=== PATIENT | male | born 1935 | race Caucasian/White ===

== ENCOUNTER 2019-06-08 11:07 | Inpatient (IN) | payer OTHER ==
[~2019-06-08] VITALS: Ht 175.3 cm; Wt 66.0 kg
[2019-06-08 11:09] VITALS: BP 139/69
[2019-06-08 11:45] LABS: HEMATOCRIT 37.2 % (42.0-52.0); HEMOGLOBIN 12.4 gm/dL (14.0-18.0); MCH 30.8 pg (26.0-34.0); MCHC 33.2 g/dL (28.0-37.0); MCV 92.9 fL (80.0-100.0); PLATELET COUNT 205 thou/uL (150-400); RBC 4.01 mil/uL (4.50-6.00); RDW 14.9 % (10.5-14.5); WBC 5.5 thou/uL (4.0-11.0)
[2019-06-08 11:57] LABS: CALCIUM 8.9 mg/dL (8.5-10.1); CREATININE 1.2 mg/dL (0.7-1.3); POTASSIUM 4.2 mmol/L (3.5-5.1)
[2019-06-08 12:03] LABS: ALBUMIN 2.6 g/dL (3.4-5.0); TOTAL BILIRUBIN 0.3 mg/dL (<0.1-1.0); TOTAL PROTEIN 5.9 g/dL (6.4-8.2)
[2019-06-08 12:15] LABS: ABSOLUTE NEUTROPHILS 3.6 thou/uL (1.4-8.2); PLATELET ESTIMATE NORMAL
[2019-06-08 12:39] LABS: URINE BILIRUBIN NEGATIVE (Negative); URINE BLOOD NEGATIVE (Negative); URINE CLARITY CLEAR; URINE COLOR YELLOW; URINE GLUCOSE-RANDOM* NEGATIVE (Negative); URINE KETONES NEGATIVE (Negative); URINE LEUKOCYTES-REFLEX NEGATIVE (Negative); URINE NITRITE-REFLEX NEGATIVE (Negative); URINE PROTEIN (DIPSTICK) NEGATIVE (Negative); URINE SPECIFIC GRAVITY 1.015 (1.005-1.035)
[2019-06-08 12:50] LABS: AMP/METHAMP Negative (Negative); BARBITURATES Negative (Negative); BENZODIAZEPINES Negative (Negative); COCAINE Negative (Negative); METHADONE Negative (Negative); OPIATES Negative (Negative); PCP Negative (Negative)
--- NOTE | 2019-06-08 13:08 | NUR ---
Dr. Larsen and I were asked to assess pt to see if he meets criteria for SBH. Jian was restless is his bed in the ER, the side rails are up x2 and he was acting as if he ws trying to get OOB. The RADIOTELEGRAPH OPERATOR, myself and Dr. Larsen changed the brief on Jian. He began to cuss at us and tried to fight us. Once he was cleaned he calmed down. 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 Dr. Dawkins will be the admitting physician.
[2019-06-08 13:40] VITALS: BP 139/69
[2019-06-08] MEDS ORDERED: DIVALPROEX SOD250 M3 PO (15:25)
[2019-06-08] MEDS ORDERED: ROSUVASTATIN CA20 MG PO (15:25)
[2019-06-08] MEDS ORDERED: TAMSULOSIN HCL0.4 MG PO (15:25)
[2019-06-08] MEDS ORDERED: MINOCYCLINE HC100 M2 PO (15:25)
[2019-06-08] MEDS ORDERED: XARELTO20 MG PO (15:25)
[2019-06-08] MEDS ORDERED: ARICEPT10 M1 PO (15:25)
[2019-06-08] MEDS ORDERED: MELATONIN3 M1 PO (15:26)
[2019-06-08] MEDS ORDERED: PREDNICARBATE (15:28)
[2019-06-08] MEDS ORDERED: TYLENOL EXTRA500 MG PO (15:30)
--- NOTE | 2019-06-08 17:02 | NUR ---
ROSE spoke with pt's daughter Crissy who gave SW some hx on pt. She said he resides at [facility]; he originally moved with his to [place], but was transferred a little over a year ago to memory care. Pt can no longer go outside and that upsets him. Pt also becomes triggered when trying to communicate. He also does not like loud noises. 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 Since then his relationship with his siblings changed and declined. Crissy originally wanted to keep pt in [place] and hire help, but this idea overwhelmed pt's . Pt eats with his hands and also needs assistance with bathing, dressing, and grooming. He also can walk but his balance is unsteady. Crissy sent ROSE a DPOA doc via email and ROSE reviewed. It says that Crissy is fidiciary DPOA. ROSE will review document with her team to establish the best plan of action in establishing who is DPOA of pt. ROSE team will continue to follow pt during his stay on this unit.
--- NOTE | 2019-06-08 18:17 | NUR ---
AAOX1 NAME ONLY VERY CONFUSED AND FORGETFUL. DENIES PAIN. AMBULATES WITH SLOW STEADY GAIT. SPEECH CLEAR BUT WORD SALAD. ATE DINNER IN DINING ROOM - EATS WITH HANDS ATE 80% OF DINNER. PACES IN HALLS AND TRIES TO ENTER ALL DOORS AND GOES INTO OTHERS ROOMS.
[2019-06-08 19:31] VITALS: BP 112/64
--- NOTE | 2019-06-08 23:59 | NUR ---
Care assumed of patient at 1915: Patient wandering about the halls, dayroom and other patient rooms this evening. Required frequent re-direction to dayroom or his room. Patient alert and oriented to person only. Patient having flight of ideas, nonsensical speech. Patient denies pain or discomfort. Unknown if patient completely understands questions asked. Would respond to questions with Yes or No. No s/s of pain or discomfort observed. Took HS medication whole but attempted to chew medications. Needed several prompts to take a drink of water to swallow medications. Patient resistive, but did take a drink. Patient has darkened, dry skin to bilateral upper extremities. No aggression or agitation shown. No s/s of AH/VH, paranoia or delusions. Patient exit seeking at times. Patient ate 100% HS snack but did need assist. Patient confused and forgetful, needing several prompts and assistance. Patient assisted to bed rather late in the evening but was able to fall to sleep without difficulty and has been resting quietly since.
[2019-06-09 08:00] VITALS: BP 119/79
--- NOTE | 2019-06-09 14:43 | NUR ---
ROSE reviewed pt's DPOA in tx team and it was determined that pt's 3 sons and have healthcare DPOA and his daughter Crissy has fiduciary. ROSE reached out to Crissy and Gabrielle via email. Gabrielle told ROSE and nursing staff that [facility]; [facility] is currently not allowing anyone into the facility. ROSE again attemted to contact Anita with [facility] and was told she was training staff. SW team will continue to follow pt during his stay on this unit.
--- NOTE | 2019-06-09 16:28 | NUR ---
Sitting in WC or recliner most of day with lap sanford in place to close in front. Slept most of day with some rambling speech when awake. Orientated to self only. No speech or actions suggestive of SI/HI. Breath sounds clear t/o. Reg HR auscultated. Color pink with brisk capillary refill and palpable peripheral pulses. Feet cool to touch with +2 edema. Incontinent of large amt yellow urine per brief. Active bowel sounds over soft, flat abdomen. Small firm brown stool. Bruising and edema over R wrist and hand. Skin tear to R wrist, cleaned with NS and petroleum drsg applied after photographs, placed in chart. Dr. Dawkins placed wound consult. Consulting with Dr. Rich r/t hand swelling.
--- NOTE | 2019-06-09 16:30 | NUR ---
SW did check in with patients instead of groups due to COVID-19 guidelines. Pt was getting water when SW did rounds. He did not appear upset. He also did not talk with SW.
[2019-06-09 19:46] VITALS: BP 122/66
[2019-06-09 20:01] VITALS: BP 104/59
--- NOTE | 2019-06-09 23:08 | NUR ---
Care assumed of patient at 1915: Patient sleeping in bed at start of shift. Easily aroused. Calm and cooperative. Slow to respond. Alert and oriented to person only. Confused and forgetful. Incontinent of bladder. Resistive with rajinder care and linen change. Moaning and trying to push staff away, but did not swing arms/legs or try to grab staff. No cursing or yelling observed. Patient took HS medication whole with 50% snack of pudding. Initially started to spit out pudding until he realized it was pudding. Dressing intact to top of right wrist. Denies pain or discomfort. Denies SI/HI/AH/VH. Did answer yes/no questions. Unknown if patient understands the meaning of the questions but he did state "no" when asked most questions. No delusional or paranoia behaviors observed. No pacing or exit seeking observed. Patient able to fall back to sleep after taking HS medication and has been resting quietly since.
[2019-06-10 07:00] VITALS: BP 125/68
--- NOTE | 2019-06-10 10:58 | NUR ---
0715 Lying supine in bed without s/o distress. Orientated to self only. Some confused speech in response to questions. No speech or behavior suggestive of SI/HI. Breath sounds clear t/o, bilaterally equal. Reg HR auscultated. Color pink with brisk capillary refill and palpable peripheral pulses. +2 edema in lower extremities. Incontinent of large amount yellow urine per brief. Active bowel sounds over soft, rounded abdomen. Multiple black, circular areas over lower legs. Skin tear per R hand covered with clean and dry dressing. Slightly reddened area to buttocks, paste applied. Able to stand and transfer with assistance to wheelchair. Lap sanford placed, secured in front. Ate 100% of breakfast. Compliant with meds. 1100 Showered and hair washed. Much more alert, some rambling speech. No s/o distress. Currently sitting in day room with lap sanford in place.
--- NOTE | 2019-06-10 17:33 | NUR ---
SW met with patients individually instead of group due to COVID-19 guidelines. Patient did not engage with SW.
[2019-06-10 20:19] VITALS: BP 140/80
[2019-06-10 22:00] VITALS: BP 140/80
--- NOTE | 2019-06-11 00:25 | NUR ---
Assumed care of patient this pm shift. Patient resting quietly in bed. Patient appears confused but calm. Patient alert to self. Patient denies hi/si. Patient has a wound on/around the wrist which RN dressed. Patient had a bowel movement this pm shift. Patients assessment shows clear breath sounds, active bowel sounds, and s1 s2 heard with auscultation. Patient dressed in hospital gown and pants. We will continue to monitor.
[2019-06-11 09:35] VITALS: BP 135/66
--- NOTE | 2019-06-11 13:54 | HC ---
[facility] [place] [address] CONSULTATION Name: SORAIDA CODY Room #: 522A-A ADM IN M.R.#: [id number] Admission: 06/08/19 Attend Phys: Gaurav Larsen DO Discharge: Date of : 31 Report #: [id number] THIS REPORT FOR: cc: Katy Saxena Kathryn C. DO Jetmore, Allen B. MD ~ CC: Gaurav Saxena DATE OF SERVICE: 06/10/2019 WOUND CARE CONSULTATION NOTE LOCATION: [facility]. REASON FOR CONSULTATION: Skin tear, right arm. HISTORY OF PRESENT ILLNESS: The patient is an 83-year-old gentleman with history of dementia, admitted to the Emergency Room from his nursing care facility where he developed aggressive behavior. He was confused, unable to give any history. With the patient's aggressive behavior, he developed a skin tear of his right arm. It is unclear whether this was present prior to admission. Wound care is consulted due to a skin tear of the right arm. Apparently, this occurred yesterday. The patient is unable to give any history. PAST MEDICAL HISTORY: Atrial fibrillation, pacemaker, urinary incontinence. ALLERGIES: None. MEDICATIONS: See chart. REVIEW OF SYSTEMS: Not obtainable. PHYSICAL EXAMINATION: GENERAL: Shows an elderly male with dementia. HEENT: Mucous membranes are moist. NECK: Supple. LUNGS: Respirations are unlabored. ABDOMEN: Soft. EXTREMITIES: Shows a skin tear of the right dorsal forearm approximately 5 cm from the wrist. There is no avulsion type skin tear measuring approximately 1.5 x 1.5 cm. Appears to be a full split-thickness skin tear. There is a flap of devitalized skin, adherent at proximal edge. Wound appears clean. We will order Silvadene ointment to the wound twice a day. IMPRESSION: [facility] [address] [place] [address] CONSULTATION Name: SORAIDA CODY Room #: 522A-A ADM IN .R.#: [id number] Admission: 06/08/19 Attend Phys: Gaurav Larsen DO Discharge: Date of : 33 Report #: [id number] 1. Dementia. 2. Aggressive behavior. 3. Avulsion type skin tear of the right forearm. PLAN: We will order Silvadene cream apply to the wound twice daily and then cleaned off, covered with gauze dressing. Wound care team will follow. <ELECTRONICALLY SIGNED> By: Edward Singh MD 06/11/19 1354 [id number] 1102 Edward Singh MD /nt
--- NOTE | 2019-06-11 13:54 | HC ---
[facility] [place] [address] CONSULTATION Name: SORAIDA CODY Room #: 522A-A ADM IN M.R.#: [id number] Admission: 06/08/19 Attend Phys: Gaurav Larsen DO Discharge: Date of : 33 Report #: [id number] THIS REPORT FOR: cc: Katy Saxena Kathryn C. DO Jetmore, Allen B. MD ~ CC: Gaurav Saxena DATE OF SERVICE: 06/10/2019 WOUND CARE CONSULTATION NOTE REASON FOR CONSULTATION: Skin tear of right arm. HISTORY OF PRESENT ILLNESS: The patient is an 83-year-old gentleman admitted to [facility] through the Emergency Department by [facility] for history of dementia with aggressive behavior at the [facility] facility. The patient was confused, not able to give any history. Wound care is consulted due to patient's current behavior developing a skin tear. Dictation Ends Here. <ELECTRONICALLY SIGNED> By: Edward Singh MD 06/11/19 1354 1047 1054 Edward Singh MD /nt
--- NOTE | 2019-06-11 16:51 | NUR ---
SW completed 1 on 1 vs. group due to COVID-19 guidelines. Patient was confused and unable to engage with SW.
--- NOTE | 2019-06-11 17:05 | NUR ---
ORIENTED TO FIRST NAME ONLY. CONFUSED ALL DAY - SPEECH INCONPREHENSTBLE. EATS MEALS WITH HANDS - GOOD APPETITE. TOOK MEDS WHOLE IN PUDDING. AMBULATES WITH SLOW STEADY GAIT. INCONTINENT OF URINE - WEARS BRIEF. DENIES PAIN. DR. GARCIA HERE AND DEBRIEDED RIGHT ARM SKIN TEAR AND APPLIED SILVADENE AND OPTIFOAM. CLAPS HANDS AND WANDERS ON UNIT ALL DAY.
[2019-06-11 19:35] VITALS: BP 113/77
--- NOTE | 2019-06-11 22:01 | NUR ---
Assumed care on 06/11/19 @ 1900, in emigdio chair, chair alarm in place. Oriented to self only. Cooperated with assessment, Hrrr even rhythm noted, Lungs cta, abd N x 4 Q. Compliant with meds whole in pudding. In bed at this writing, bed in low position, bed alarm set. Eyes closed, respirations even and unlabored.
[2019-06-12 00:25] VITALS: BP 113/77
[2019-06-12 08:20] VITALS: BP 121/70
[2019-06-12 11:33] VITALS: BP 136/66
--- NOTE | 2019-06-12 11:38 | NUR ---
Assumed care of pt at 0700. Pt still sleeping in bed. 0730, pt awakened and assisted with ADLs, assisted to dayroom by staff and seated at table. Pt tolerated meds well (whole w/pudding) with no difficulty. Pt reported no pain. Pt seated in dayroom for activities. Will continue to monitor.
--- NOTE | 2019-06-12 13:51 | NUR ---
Anita from [facility] contacted for an update on pt. SW provided her an update verbally. ROSE also told her that the fax she keeps sending is not coming through. Anita said she will send the forms via email to ROSE; they are forms signed by his for pt to be treated on the unit. Anita gave SW her fax number of [phone]. received the forms via email. team will continue to follow pt during his stay on this unit.
--- NOTE | 2019-06-12 16:50 | NUR ---
Due to COVID-19 regulations, SW is meeting with pt's 1-[address] of group activities[address] SW attempted to speak to pt. He did not respond to SW and instead wandered the commons area. ROSE then observed him sit in a recliner where he began to visibly shake.
[2019-06-12 19:20] VITALS: BP 140/80
--- NOTE | 2019-06-13 04:27 | NUR ---
Assumed care of pt @ 1900. Pt calm et cooperative this shift. Took medications whole in pudding without difficulty. Ambulates the halls ad geetha with slightly unsteady gait. Pt in dayroom with peers until HS but not socializing. Unable to assess SI/HI due to pt's level of confusion. VSWNL. Health assessment with no abnormalities other than previously noted. Currently resting in bed with eyes closed. Will continue to monitor per protocol.
[2019-06-13 07:46] VITALS: BP 125/86
--- NOTE | 2019-06-13 09:58 | NUR ---
Lying supine in bed. Alert and orientated X4. Conversive and cooperative with assessment. Denies SI/HI. States he has pain in R knee, ranks it a 5-6/10. Very little mobility d/t joint deformities. Breath sounds clear t/o, bilaterally equal. Reg HR auscultated. Color pink with brisk capillary refill and palpable peripheral pulses. +1-2 non pitting edema in lower extremities. Yellow urine per urinal. Active bowel sounds over soft, rounded abdomen. States he had a stool yesterday but it was very firm and it still feels like he needs to have a stool. Lactulose given with AM meds. Multiple joint deformities. Reddened skin on lower extremities but much improved. Dry skin with several plaques on BLE, lotion applied. Linear white-brown dried skin area on L buttock, healing. Placed in recliner with morenita lift by ROOM SERVICE FOOD SERVICE ATTENDANT. Currently sitting out in dining room with peers watching TV. Received phone call from Rosa from Dr. Basurto office stating that pt can be full weight bearing on R leg and no weight bearing on L leg. Dr. Dawkins notified, currently meeting with pt.
--- NOTE | 2019-06-13 10:35 | NUR ---
Lying supine in bed without s/o distress. Alert to name only, confused speech. Does cry out, states it hurts when tape removed, changing clothes but calms once stimulation stopped. No speech/behavior suggestive of SI/HI. Compliant with meds taken whole in pudding. Regular, steady gait later in morning. Breath sounds clear t/o. Reg HR auscultated. Color pink with brisk capillary refill and palpable peripheral pulses. +1 nonpitting edema in lower extremities. Active bowel sounds over soft, rounded abdomen. Took drsg off R wrist, small amt white drainage. Cleaned with NS and gauze, dressed with Xeroform and optiform drsg.
--- NOTE | 2019-06-13 17:13 | NUR ---
Due to COVID-19 guidelines, SW met with pts on a 1-to-1 basis. Pt told SW he was okay when she asked him how he was doing. He then began to try to find a table to sit at for dinner. SW escorted him to a table and helped him arrange his food where he could grab it with his fingers to eat.
[2019-06-13 19:56] VITALS: BP 137/94
--- NOTE | 2019-06-14 00:23 | NUR ---
Assumed care on 06/13/19 @ 1900, in bed, dressing applied to R elbow where a scab had come off. Cooperated with assessment, HRRR, Lungs CTA, ABD N x 4 Q. Dressing on R hand CDI. Compliant with medication whole in pudding. Ambulating through halls, exit seeking. Ativan given @ 1999 for anxiety, wandering and intrusion into peers rooms. At this writing, in bed, eyes closed, respirations even and unlabored. Bed in low position, bed alarm set.
[2019-06-14 00:27] VITALS: BP 137/94
[2019-06-14 05:31] LABS: HEMOGLOBIN 10.8 gm/dL (14.0-18.0); MCH 31.5 pg (26.0-34.0); MCHC 33.7 g/dL (28.0-37.0); MCV 93.5 fL (80.0-100.0); PLATELET COUNT 200 thou/uL (150-400); RBC 3.42 mil/uL (4.50-6.00); RDW 15.1 % (10.5-14.5); WBC 5.7 thou/uL (4.0-11.0)
[2019-06-14 06:09] LABS: ALBUMIN 2.4 g/dL (3.4-5.0); CALCIUM 8.3 mg/dL (8.5-10.1); CREATININE 1.1 mg/dL (0.7-1.3); POTASSIUM 4.1 mmol/L (3.5-5.1); TOTAL BILIRUBIN 0.3 mg/dL (<0.1-1.0); TOTAL PROTEIN 5.5 g/dL (6.4-8.2)
--- NOTE | 2019-06-14 06:28 | NUR ---
slept 6.6 hours
[2019-06-14 09:07] VITALS: BP 153/66
[2019-06-14 11:50] LABS: ABSOLUTE NEUTROPHILS 3.7 thou/uL (1.4-8.2)
[2019-06-14 11:51] LABS: ANISOCYTOSIS 1+
--- NOTE | 2019-06-14 12:13 | NUR ---
0700 Lying supine in bed without s/o distress. Awakens easily, alert and orientated X1. Confused speech in response to questions. Redirectable. No speech or behavior suggestive of SI/HI. Breath sounds clear t/o. Reg HR with murmur auscultated. Color pink with brisk capillary refill and palpable peripheral pulses. +2-3 pitting edema in lower extremities, L>R. Yellow urine per brief, incontinent. Active bowel sounds over soft, flat abdomen. No documented BM since 06/09. Miralax given PO. Regular, steady gait. Ambulates around unit without agitation. Compliant with meds, took whole in pudding. 1030 Showered with some resistance. Skin tear above wrist cleaned with NS and redressed. Scant amt white drainage. 1 cm skin tear on R elbow cleaned with NS and redressed with xeroform and optiform. No s/o distress. 1230 Up ambulating in unit without s/o distress. Clear drainage from nose. Resistant to laying down in bed. Currently in day room with peers.
--- NOTE | 2019-06-14 13:21 | NUR ---
ROSE contacted Anita with [facility] to arrange discharge. She said tomorrow morning would be best; ROSE and Anita agreed on 9am. She said at this time they do not have transportation services. ROSE arranged transportation for pt on 06/15/19 @ 9am. Trip # [id number] SW team will continue to follow pt during his stay on this unit.
--- NOTE | 2019-06-14 13:58 | NUR ---
ROSE received a call from Brandy Cazares who said she would like all information about pt to be given to Crissy, pt's daughter. ROSE explained that all changes still must go through her, and Brandy responded that was fine. However, she would like Crissy to have access to all of her information. She would rather go through Crissy to get info about pt. ROSE contacted Crissy to tell her of pt's discharge tomorrow. No answer. ROSE lft msg. ROSE team will continue to follow pt during his stay on this unit.
[2019-06-14 20:03] VITALS: BP 128/99
--- NOTE | 2019-06-15 04:12 | NUR ---
Assumed care of pt @ 1900. Pt calm et cooperative this shift. Took medications whole in pudding without difficulty. Ambulates the halls ad geetha with slightly unsteady gait. VSWNL. Health assessment with no abnormalities other than previously noted. Unable to assess SI/HI due to pt's level of confusion but pt does not show any signs of distress. PRN Haldol et PRN Ativan given later in shift due to pt's increased anxiety/agitation. Pt currently resting in recliner in dayroom with eyes closed. Will continue to monitor per protocol.
[2019-06-15 09:29] VITALS: BP 118/71
[2019-06-15] MEDS ORDERED: MIRALAX17 GM PO (09:34)
[2019-06-15] MEDS ORDERED: DEPAKOTE 250MG250 M1 PO (09:34)
[2019-06-15] MEDS ORDERED: DEPAKOTE500 MG PO (09:34)
[2019-06-15] MEDS ORDERED: LORAZEPAM 0.50.5 MG PO (09:34)
--- NOTE | 2019-06-15 09:39 | NUR ---
ASSUMED CARE OF PT AT 0700. PT HAS SOME CONFUSION, AOX1, DENIES PAIN. PT CURRENTLY IN RECLINER, AND VSSWNL. PT TOOK SCHEDULED MEDICATION WHOLE WITH SIPS OF WATER. PT IS DISCHARGING TO [facility]. PT REMAINS CALM AT THIS TIME. PERSONAL BELONGINGS ARE PACKED AND READY TO GO. WILL CONTINUE TO MONITOR FOR SAFETY.
--- NOTE | 2019-06-15 10:00 | NUR ---
SW D/C note SW faxed discharge documents, temp log, and COVID-19 screen to Anita at [facility] at [phone]. No other needs for ROSE team wot address at this time.
--- NOTE | 2019-06-16 12:19 | EKG ---
[facility] [place] [address] ELECTROCARDIOGRAM REPORT Name: SORAIDA CODY Room #: 522A-A DIS IN M.R.#: [id number] Admission: 06/08/19 Attend Phys: Gaurva Larsen DO Discharge: 06/15/19 Date of : 31 Report #: [id number] THIS REPORT FOR: cc: Katy Saxena Kathryn C. DO Lundgren, Craig H. MD [facility] ~ THIS REPORT FOR: //name// [facility] ED Test Date: 2019-06-08 Test Time: 11:35:50 Pat Name: SORAIDA CODY Department: Room: 52 Gender: M Double Backer: Rene : 1935 Requested By: Igor Davies Order Number: [id number] MD: Wali Tamayo Measurements Intervals [place] Rate: 70 P: -39 MO: 238 QRS: -69 QRSD: 118 T: 93 QT: 404 QTc: 436 Interpretive Statements Atrial-sensed ventricular-paced rhythm No further analysis attempted due to paced rhythm Baseline wander in lead(s) V4 No previous ECG available for comparison Electronically Signed On 06-09-2019 9:55:14 CDT by Wali Tamayo [email or web address] <ELECTRONICALLY SIGNED> By: Wali Tamayo MD, FAC 06/09/19 0955 1135 1135 Wali Tamayo MD, FAC /EPI
== END 2019-06-15 10:25 | DRG 884 ==
LOC: ER 11:07 → SBH 12:53 → EROBS 12:53 → SBH 13:51
PROVIDERS: Emergency Medicine; Psychiatry & Neurology Psychiatry; ADMIT Psychiatry & Neurology Psychiatry
DX: F03.91 Unspecified dementia, unspecified severity, with behavioral disturbance (principal); E44.0 Moderate protein-calorie malnutrition; S61.401A Unspecified open wound of right hand, initial encounter; I48.91 Unspecified atrial fibrillation; Z95.0 Presence of cardiac pacemaker; X58.XXXA Exposure to other specified factors, initial encounter; Y93.89 Activity, other specified; Y92.89 Other specified places as the place of occurrence of the external cause; Y99.8 Other external cause status; Z68.21 Body mass index [BMI] 21.0-21.9, adult
CPT/HCPCS: 10880